=== PATIENT | male | born 1965 | race Two or more races ===

== ENCOUNTER 2019-07-01 09:11 | Emergency (ER) | payer BC ==
[~2019-07-01] VITALS: Ht 160 cm; Wt 83.9 kg
[2019-07-01 09:16] VITALS: BP 162/95
--- NOTE | 2019-07-01 09:25 | NUR ---
ED Nurse Note: Pt from home came in due to right shoulder pain that radiates down his right arm and with tingling sensation x 1 week. Denies injury to his arm. AAO x4, ambulatory, able to move all extremities.
--- NOTE | 2019-07-01 09:49 | Emergency Room Report ---
History of Present Illness General Chief Complaint: Upper Extremity Injury Source: Patient Present Illness HPI 53-year-old male with a history of high cholesterol comes to the ER with complaints of having right neck and shoulder pain for 1 week, no relief with Aleve and Tylenol, reports is worse with certain positions and movement, reports it also feels like a tingling sensation but denies any weakness. He also pérez slurred speech or any other extremity involvement, headache, blurred vision, or neck/shoulder trauma Allergies: Coded Allergies: No Known Allergies (Unverified , 07/01/19) Patient History Past Medical History: see triage record Reviewed Nursing Documentation: PMH: Agreed; PSxH: Agreed Nursing Documentation-PMH Past Medical History: No Stated History Review of Systems All Other Systems: negative except mentioned in HPI Physical Exam Vital Signs Date Time Temp Pulse Resp B/P (MAP) Pulse Ox O2 Delivery O2 Flow Rate FiO2 07/01/19 09:16 98.1 72 18 162/95 97 Room Air Sp02 EP Interpretation: reviewed, normal General Appearance: no apparent distress, alert, non-toxic Head: normocephalic Eyes: bilateral eye normal inspection, bilateral eye PERRL, bilateral eye EOMI ENT: normal ENT inspection, hearing grossly normal, normal pharynx, no angioedema, normal voice, moist mucus membranes Neck: normal inspection, full range of motion, supple, supple/symm/no masses Respiratory: chest symmetrical Cardiovascular #1: normal peripheral pulses, regular rate, rhythm Cardiovascular #2: 2+ radial (R), 2+ radial (L) Gastrointestinal: normal inspection, non tender, soft, no mass, no guarding, no rebound Rectal: deferred Genitourinary: normal inspection, no CVA tenderness Musculoskeletal: back normal, gait/station normal, normal range of motion, non- tender, no calf tenderness Neurologic: alert, responsive, residential glazier III-XII nml as tested, motor strength/tone normal, sensory intact, cerebellar normal, normal gait, speech normal, no pronator Psychiatric: judgement/insight normal, memory normal, mood/affect normal Lymphatic: no adenopathy Medical Decision Making Diagnostic Impression: Primary Impression: Cervical radiculopathy ER Course Pt with signs/symptoms c/w cervical radiculopathy, will give gabapentin, recommend PMD f/u. Neuro exam normal, very low suspicion for TIA/CVA. Other X-Ray Diagnostic Results Other X-Ray Diagnostic Results #1: X-Ray ordered: R shoulder # of Views/Limited Vs Complete: 3 View Indication: Pain EP Interpretation: Yes Interpretation: no dislocation, no soft tissue swelling, no fractures Impression: No acute disease Electronically Signed by: Shannon Trimble MD Other X-Ray Diagnostic Results #2: X-Ray ordered: cervical spine # of Views/Limited Vs Complete: 4 View, Limited Indication: Pain EP Interpretation: Yes Interpretation: no dislocation, no soft tissue swelling, no fractures Impression: No acute disease Electronically Signed by: Shannon Trimble MD Last Vital Signs Date Time Temp Pulse Resp B/P (MAP) Pulse Ox O2 Delivery O2 Flow Rate FiO2 07/01/19 09:16 98.1 72 18 162/95 (117) 97 Room Air Disposition: HOME, SELF-CARE Scripts No Active Prescriptions or Reported Meds Referrals: NON PHYSICIAN (PCP) SHANNON TRIMBLE M.D Jul 01, 2019 09:49
[2019-07-01] MEDS ORDERED: GABAPENTIN300 MG ORAL (10:45)
[2019-07-01] MEDS ORDERED: MEDROL DOSEPAK4 MG ORAL (10:45)
--- NOTE | 2019-07-01 10:48 | Diagnostic Imaging Report ---
INDICATION: Shoulder pain TECHNIQUE: XRAY Shoulder Compl R Multiple views of the right shoulder were obtained COMPARISON: None FINDINGS: There is no acute fracture or dislocation. Joint spaces are maintained. No acute soft tissue abnormality. Visualized right lung is clear. IMPRESSION: No acute fracture or dislocation.
--- NOTE | 2019-07-01 10:51 | Diagnostic Imaging Report ---
INDICATION: Neck pain TECHNIQUE: XRAY C Spine 2-3v Multiple views of the cervical spine including odontoid view were obtained COMPARISON: None FINDINGS: Cervical spine there is visualization of C1-C7 on the lateral view. Alignment is anatomic. There is preservation of the normal cervical lordosis. Vertebral body heights are maintained. There is mild multilevel discogenic degenerative disease characterized by mild disc space narrowing and endplate osteophyte formation. Atlantodental intervals with respect to lateral masses are preserved. There is no prevertebral soft tissue swelling. IMPRESSION: No acute fracture or malalignment.
[2019-07-01 12:12] VITALS: BP 137/89
--- NOTE | 2019-07-01 12:12 | NUR ---
ED Nurse Note: Patient is being d/c from medical care. D/C insturction and prescription given. Patient verbalized understanding of it. Patient ambulated with steady gait, accompained by family member.
== END 2019-07-01 12:12 | disposition home or self-care (01) ==
LOC: EMR 09:38
DX: M54.12 Radiculopathy, cervical region (principal); M25.511 Pain in right shoulder; E78.00 Pure hypercholesterolemia, unspecified
CPT/HCPCS: 72040; 99284

== ENCOUNTER 2020-02-22 06:10 | Emergency (ER) | payer BC ==
[~2020-02-22] VITALS: Ht 165.1 cm; Wt 72.6 kg
[~2020-02-22 06:10] MED LIST: GABAPENTIN300 MG ORAL; MEDROL DOSEPAK4 MG ORAL
--- NOTE | 2020-02-22 06:23 | NUR ---
Nurse Note: Pt walked in c/o RT shoulder pain for 3 days. Pt denies trauma, unk cause. Pt stated it may be stressed related. Pt also stated that the RT side of his mouth is "not the same when I smile". Pt able to raise eyebrows, hand traffic checker equal, sensation felt in all extremities, full strength in all extremities. VSS; pt stated he takes ASA. All safety measures met; will continue to montior.
[2020-02-22 06:24] VITALS: BP 146/95
--- NOTE | 2020-02-22 06:35 | NUR ---
ED Nurse Note: ERMD at bedside
--- NOTE | 2020-02-22 06:37 | Emergency Room Report ---
History of Present Illness General Chief Complaint: Pain Source: Patient Present Illness HPI This patient states that around 6 PM last night he noticed a sensation in the right side of his face that he states feels weaker. He states that he went to sleep overnight and this morning notices that it is more difficult to close his right eye-lid all the way and it feels weak in his right part of his lips. He denies hand weakness or tingling or numbness. He has no other symptoms. He denies blurry vision. He denies recent illness. He denies headache or neck pain. He states he has had some soreness in his right shoulder. He denies trauma. He denies fever or chills. He denies nausea or vomiting. Denies chest pain or shortness of breath. He denies abdominal pain. He has no other complaints. Allergies: Coded Allergies: No Known Allergies (Unverified , 07/01/19) COVID-19 Screening Contact w/high risk pt: No Recent Travel to affected area: No Experienced COVID-19 symptoms?: No COVID-19 Testing performed DEAN OF MEN: No Patient History Past Medical History: see triage record, HTN, other - HLP, borderline DM Social History: Denies: smoking, alcohol use, drug use Reviewed Nursing Documentation: PMH: Agreed; PSxH: Agreed Nursing Documentation-PMH Hx Hypertension: Yes - HDL Review of Systems All Other Systems: negative except mentioned in HPI Physical Exam Vital Signs Date Time Temp Pulse Resp B/P (MAP) Pulse Ox O2 Delivery O2 Flow Rate FiO2 02/22/20 06:19 98.6 83 16 146/95 (112) 97 Room Air Sp02 EP Interpretation: reviewed, normal General Appearance: no apparent distress, alert, GCS 15, non-toxic Head: normocephalic, atraumatic Eyes: bilateral eye normal inspection, bilateral eye PERRL, bilateral eye EOMI ENT: normal ENT inspection, hearing grossly normal, normal pharynx, no angioedema, normal voice, TMs + canals normal Neck: normal inspection, full range of motion, supple/symm/no masses Respiratory: chest non-tender, lungs clear, normal breath sounds, no respiratory distress, no retraction, no accessory muscle use, speaking full sentences Cardiovascular #1: regular rate, rhythm, no edema Gastrointestinal: normal inspection, non-distended Rectal: deferred Musculoskeletal: back normal, normal range of motion, gait/station normal, tender - TTP along the R. Trapezius m. Neurologic: alert, motor strength/tone normal, oriented x3, sensory intact, responsive, speech normal, other - ? very subtle R. facial droop, including forehead. R. eyelids with weaker and incomplete closing. EOM intact, Other CN intact Psychiatric: judgement/insight normal, memory normal, mood/affect normal, no suicidal/homicidal ideation Skin: no rash, normal color Medical Decision Making Diagnostic Impression: Primary Impression: Barros's palsy ER Course This patient has findings on exam consistent with very early Barros's palsy. I have a low suspicion for a central lesion based on the physical exam. This appears to be a peripheral facial nerve palsy. It is very mild. However, the patient does have some difficulty approximating the eyelids of the right eye. I instructed the patient on eyedrops during the day and a thicker lubricant for nighttime. He was also given an eye patch for at night. Patient presents within 24 hours of the onset of symptoms. I will start the patient on steroids and antivirals. Patient was educated that likely the palsy will worsen given he presents to early. He is given close return precautions and follow-up instructions. Laboratory Tests Test 02/22/20 06:45 White Blood Count 7.4 K/UL (4.8-10.8) Red Blood Count 4.49 M/UL (4.70-6.10) L Hemoglobin 14.4 G/DL (14.2-18.0) Hematocrit 41.9 % (42.0-52.0) L Mean Corpuscular Volume 93 FL (80-99) Mean Corpuscular Hemoglobin 32.0 PG (27.0-31.0) H Mean Corpuscular Hemoglobin Concent 34.3 G/DL (32.0-36.0) Red Cell Distribution Width 12.0 % (11.6-14.8) Platelet Count 202 K/UL (150-450) Mean Platelet Volume 8.3 FL (6.5-10.1) Neutrophils (%) (Auto) 53.4 % (45.0-75.0) Lymphocytes (%) (Auto) 35.4 % (20.0-45.0) Monocytes (%) (Auto) 7.6 % (1.0-10.0) Eosinophils (%) (Auto) 2.2 % (0.0-3.0) Basophils (%) (Auto) 1.4 % (0.0-2.0) Prothrombin Time 10.7 SEC (9.30-11.50) Prothrombin Time INR 1.0 (0.9-1.1) Activated Partial Thromboplast Time 26 SEC (23-33) Sodium Level 139 MMOL/L (136-145) Potassium Level 3.7 MMOL/L (3.5-5.1) Chloride Level 105 MMOL/L (98-107) Carbon Dioxide Level 24 MMOL/L (21-32) Anion Gap 10 mmol/L (5-15) Blood Urea Nitrogen 16 mg/dL (7-18) Creatinine 0.7 MG/DL (0.55-1.30) Estimated Glomerular Filtration Rate > 60 mL/min (>60) Glucose Level 151 MG/DL (74-106) H Calcium Level 8.0 MG/DL (8.5-10.1) L Total Bilirubin 0.5 MG/DL (0.2-1.0) Aspartate Amino Transferase (AST) 40 U/L (15-37) H Alanine Aminotransferase (ALT) 93 U/L (12-78) H Alkaline Phosphatase 85 U/L (46-116) Troponin I 0.000 ng/mL (0.000-0.056) C-Reactive Protein, Quantitative Pending Total Protein 7.5 G/DL (6.4-8.2) Albumin 3.8 G/DL (3.4-5.0) Globulin 3.7 g/dL Albumin/Globulin Ratio 1.0 (1.0-2.7) EKG Diagnostic Results Rate: normal Rhythm: NSR ST Segments: no acute changes Rhythm Strip Diag. Results EP Interpretation: yes Rate: 80's Rhythm: NSR, no PVC's, no ectopy CT/MRI/US Diagnostic Results CT/MRI/US Diagnostic Results : Imaging Test Ordered: CT head Impression No acute findings. Specifically no intracranial bleed, mass effect or edema. See official report. Last Vital Signs Date Time Temp Pulse Resp B/P (MAP) Pulse Ox O2 Delivery O2 Flow Rate FiO2 02/22/20 06:24 98.6 78 16 146/95 97 Room Air Status: improved Disposition: HOME, SELF-CARE Condition: Improved Referrals: NON PHYSICIAN (PCP) Colianno,Sparkle M. DO Feb 22, 2020 06:37
--- NOTE | 2020-02-22 07:07 | NUR ---
ED Nurse Note: Patient to CT scan per wheelchair
--- NOTE | 2020-02-22 07:08 | NUR ---
HAND-OFF: Report given to Amna Henao RN.
[2020-02-22 07:09] LABS: BASOPHILS % (AUTO) 1.4 % (0.0-2.0); EOSINOPHILS % (AUTO) 2.2 % (0.0-3.0); HEMATOCRIT 41.9 % (42.0-52.0); HEMOGLOBIN 14.4 G/DL (14.2-18.0); LYMPHOCYTES % (AUTO) 35.4 % (20.0-45.0); MEAN CORPUSCULAR VOLUME 93 FL (80-99); MONOCYTES % (AUTO) 7.6 % (1.0-10.0); NEUTROPHILS % (AUTO) 53.4 % (45.0-75.0); PLATELET COUNT 202 K/UL (150-450); RED BLOOD COUNT 4.49 M/UL (4.70-6.10); WHITE BLOOD COUNT 7.4 K/UL (4.8-10.8)
[2020-02-22 07:11] LABS: ANION GAP 10 mmol/L (5-15); BLOOD UREA NITROGEN 16 mg/dL (7-18); CARBON DIOXIDE 24 MMOL/L (21-32); CHLORIDE 105 MMOL/L (98-107); CREATININE 0.7 MG/DL (0.55-1.30); POTASSIUM 3.7 MMOL/L (3.5-5.1); SODIUM 139 MMOL/L (136-145)
--- NOTE | 2020-02-22 07:22 | NUR ---
ED Nurse Note: Pt returned from CT on stable condition.
[2020-02-22 07:23] LABS: ALANINE AMINOTRANSFERASE 93 U/L (12-78); ALBUMIN 3.8 G/DL (3.4-5.0); ALKALINE PHOSPHATASE 85 U/L (46-116); ASPARTATE AMINO TRANSFERASE 40 U/L (15-37); BILIRUBIN,TOTAL 0.5 MG/DL (0.2-1.0)
--- NOTE | 2020-02-22 07:29 | Diagnostic Imaging Report ---
EXAM: CT Head Without Intravenous Contrast CLINICAL HISTORY: WEAK TECHNIQUE: Axial computed tomography images of the head/brain without intravenous contrast. CTDI is 53 mGy and DLP is 1072 mGy-cm. One or more of the following dose reduction techniques were used: automated exposure control, adjustment of the mA and/or kV according to patient size, use of iterative reconstruction technique. COMPARISON: No relevant prior studies available. FINDINGS: Brain: Unremarkable. No hemorrhage. No significant white matter disease. No edema. Ventricles: Unremarkable. No ventriculomegaly. Bones/joints: Unremarkable. No acute fracture. Soft tissues: Unremarkable. Sinuses: Unremarkable as visualized. No acute sinusitis. Mastoid air cells: Unremarkable as visualized. No mastoid effusion. IMPRESSION: No evidence of acute intracranial process. Paranasal sinuses and mastoids are clear.
[2020-02-22] MEDS ORDERED: VALACYCLOVIR500 MG ORAL (07:52)
[2020-02-22] MEDS ORDERED: PREDNISONE20 MG ORAL (07:52)
[2020-02-22 07:58] VITALS: BP 136/94
--- NOTE | 2020-02-22 07:58 | NUR ---
ER DISCHARGE NOTE: Pt is cleared to be discharged per ERMD, pt is aox4, on room air, with stable vital signs. pt was given dc and prescription instructions, pt was able to verbalize understanding, pt id band and iv site removed without complications. pt is able to ambulate with steady gait. pt took all belongings.
== END 2020-02-22 07:58 | disposition home or self-care (01) ==
LOC: EMR 06:28
DX: G51.0 Bell's palsy (principal); E78.5 Hyperlipidemia, unspecified; I10 Essential (primary) hypertension
CPT/HCPCS: 36415; 70450; 80053; 84484; 85025; 85610; 85730; 86140; 93005; 99284; J7512